=== PATIENT | male | born 1940 | race Caucasian/White ===

== ENCOUNTER 2017-10-22 09:27 | Day surgery (SDC) | payer MEDICARE ==
[2017-10-22] MEDS ORDERED: PROPOFOL 10 MG/ML VIAL IV ONE (09:28)
[2017-10-22] MEDS ORDERED: FENTANYL PF 100MCG/2ML VIAL IV ONE (09:28)
[2017-10-22] MEDS ORDERED: LIDOCAINE 2% MDV (20MG/ML) 20ML VIAL IV ONE (09:28)
[2017-10-22 11:39] LABS: BLOOD UREA NITROGEN 23 mg/dL (8-23); CREATININE 1.2 mg/dL (0.7-1.2); EST GLOMERULAR FILTRATION RATE > 60 mL/min
--- NOTE | 2017-10-23 09:30 | Operative Note ---
DATE OF SURGERY: 10/22/2017 OPERATION: ESOPHAGOGASTRODUODENOSCOPY. PREOPERATIVE DIAGNOSIS: Intractable epigastric pain and history of peptic ulcer disease. POSTOPERATIVE DIAGNOSES: 1. Status post apparent Billroth I gastric resection. 2. Duodenal diverticulum. 3. [id number] proximal gastritis. 4. Irregular GE junction. PROCEDURE: After informed consent was obtained from the patient, he was placed in the left lateral decubitus position in the endoscopy suite, sedated and monitored by the department of anesthesia. A well-lubricated [id number] gastroscope was placed in the posterior oropharynx and under direct visualization passed to the proximal esophagus. The endoscope was advanced through the proximal, mid, and distal esophagus. The GE junction was irregular as far as the squamocolumnar border was concerned but I could appreciate no ulcerations, tumors, or masses. There was a gastric pouch consistent with the prior gastric resection. There appeared to be a Billroth I anastomosis and resection type. There was duodenal diverticulum. The duodenum itself was unremarkable. The anastomosis appeared unremarkable. J-turn views of the proximal stomach revealed [id number] erythema in the area of the gastric cardia but no other abnormalities. The endoscope was then straightened and retracted from the patient. I did not obtain any biopsies at this time, as the patient took his Eliquis yesterday. RECOMMENDATIONS: I would suggest he undergo a CT scan of the abdomen if this has not been recently performed. We will discuss this matter further with him in the recovery room area. As always, thank you for allowing me to participate in the healthcare of your patients. CC: DO ADRIANE Salazar
== END 2017-10-22 11:47 | disposition home or self-care (01) ==
LOC: HOP 09:27
PROVIDERS: ATTEND Internal Medicine Gastroenterology
DX: R10.13 Epigastric pain (principal); Z87.11 Personal history of peptic ulcer disease; K57.10 Diverticulosis of small intestine without perforation or abscess without bleeding; K29.60 Other gastritis without bleeding; K31.9 Disease of stomach and duodenum, unspecified; Z90.3 Acquired absence of stomach [part of]; E78.00 Pure hypercholesterolemia, unspecified; I10 Essential (primary) hypertension; I48.91 Unspecified atrial fibrillation; Z79.01 Long term (current) use of anticoagulants; K21.9 Gastro-esophageal reflux disease without esophagitis
CPT/HCPCS: 43235; 00731; 84520; 82565; J3010